=== PATIENT | female | born 1950 | race Caucasian/White ===

== ENCOUNTER → 2017-03-25 | Outpatient (CLI) | payer BC ==
[~2017-03-25] MED LIST: HYDR-3720 PO; LEVO125T71 PO; OXYC-284 PO; PRED20TA PO; VALA100057 PO
--- NOTE | 2017-03-25 13:32 | RADRPT ---
PROCEDURE: US soft tissue CLINICAL INDICATION: Right knee pain, Villavicencio's cyst TECHNIQUE: Multiple real-time images were acquired of the patient's right knee utilizing a high re solution transducer and Doppler imaging. COMPARISON: None FINDINGS: No Villavicencio's cyst is identified. The soft tissues are unremarkable. The right popliteal artery and ve in are patent without evidence of filling defects. No free fluid is identified. RPTAT: AA IMPRESSION: Unremarkable soft tissue ultrasound of the right knee without evidence of a Villavicencio's cyst or other ab normality. Physician Shagufta Date Time Electronically viewed and signed by Physician Shagufta on 03/25/2017 13:32 RA/
--- NOTE | 2017-03-25 13:33 | RADRPT ---
PROCEDURE: Right knee x-ray CLINICAL INDICATION: RT KNEE PAIN TECHNIQUE: AP, lateral, and oblique views of the knee were obtained. COMPARISON: None FINDINGS: No acute fracture or dislocation is seen. There is normal mineralization. There is moderate narrowing of the patellofemoral compartment as well as mild narrowing of the media l and lateral compartments. Small osteophytes of the medial and lateral compartments are also noted . There is no joint effusion. There is no significant soft tissue swelling. IMPRESSION: Mild to moderate degenerative changes of the right knee joint. RPTAT: EE Physician Shagufta Date Time Electronically viewed and signed by Physician Shagufta on 03/25/2017 13:33 /
== END | disposition home or self-care (01) ==
LOC: RAD 10:04
PROVIDERS: ATTEND Nurse Practitioner
DX: M25.561 Pain in right knee (principal)
CPT/HCPCS: 73562

== ENCOUNTER → 2017-03-26 | Outpatient (CLI) | payer BC ==
[2017-03-26 07:54] LABS: ADD SCAN DIFF NO
[2017-03-26 08:18] LABS: BASOPHILS % 0.7 % (0.0-2.0); EOSINOPHILS # 0.2 10^3/ul (0.0-0.5); HEMATOCRIT 41.3 % (37.0-47.0); HEMOGLOBIN 13.6 g/dl (12.0-16.0); LYMPHOCYTES # 2.1 10^3/ul (0.8-2.9); LYMPHOCYTES % 45.6 % (15.0-51.0); MEAN CORPUSCULAR HEMOGLOBIN 32.5 pg (29.0-33.0); MEAN CORPUSCULAR HGB CONC 32.9 g/dl (32.0-37.0); MEAN CORPUSCULAR VOLUME 98.6 fl (82.0-101.0); MEAN PLATELET VOLUME 10.2 fl (7.4-10.4); MONOCYTE # 0.4 10^3/ul (0.3-0.9); NEUTROPHIL # 1.9 10^3/ul (1.6-7.5); NEUTROPHILS % 41.5 % (39.0-77.0); PLATELET COUNT 225 10^3/UL (140-415); RED BLOOD COUNT 4.19 10^6/ul (4.20-5.40); RED CELL DISTRIBUTION WIDTH 12.4 % (11.5-14.5); WHITE BLOOD COUNT 4.5 10^3/ul (4.8-10.8)
[2017-03-26 08:37] LABS: ALANINE AMINOTRANSFERASE 36 IU/L (13-69); ALBUMIN 4.9 g/dl (3.3-4.9); ALBUMIN/GLOBULIN RATIO 1.53; ALKALINE PHOSPHATASE 70 IU/L (42-121); ANION GAP 14 (8-16); ASPARTATE AMINO TRANSFERASE 38 IU/L (15-46); BILIRUBIN,INDIRECT 0.5 mg/dl (0-1.1); BILIRUBIN,TOTAL 0.5 mg/dl (0.2-1.3); BLOOD UREA NITROGEN 16 mg/dl (7-20); CALCIUM 9.2 mg/dl (8.4-10.2); CARBON DIOXIDE 26 mmol/L (21-31); CHLORIDE 106 mmol/L (97-110); CHOL/HDL RATIO 2.3 RATIO; CHOLESTEROL 193 mg/dl (100-200); CREATININE 0.64 mg/dl (0.44-1.00); GLUCOSE 76 mg/dl (70-220); HDL CHOLESTEROL 83 mg/dl (35-98); SODIUM 142 mmol/L (135-144); TOTAL PROTEIN 8.1 g/dl (6.1-8.1); TRIGLYCERIDES 90 mg/dl (0-149)
[2017-03-26 09:13] LABS: FERRITIN 14.5 ng/ml (11.1-264.0)
[2017-03-26 09:47] LABS: FOLATE > 20.0 ng/ml (2.8-20.0)
[2017-03-26 10:04] LABS: IRON 135 ug/dl (35-150)
[2017-03-26 10:13] LABS: TOTAL IRON BINDING CAPACITY 392 ug/dl (241-421)
== END | disposition home or self-care (01) ==
LOC: LAB 07:04
PROVIDERS: ATTEND Nurse Practitioner
DX: E03.9 Hypothyroidism, unspecified (principal); Z98.84 Bariatric surgery status
CPT/HCPCS: 80053; 80061; 82607; 82652; 82728; 82746; 83540; 84436; 84439; 84443; 85025; 86803

== ENCOUNTER 2017-06-24 10:46 | Emergency (ER) | payer BC ==
[~2017-06-24] VITALS: Ht 165.1 cm; Wt 60.0 kg
[2017-06-24 10:50] VITALS: Ht 165.1 cm; Wt 60.0 kg
[2017-06-24] MEDS ORDERED: IBUPROFEN 800 MG TAB PO ONE (11:00)
[2017-06-24] MEDS ORDERED: IBUP-1542 PO (11:32)
--- NOTE | 2017-06-24 11:43 | RADRPT ---
PROCEDURE: Right hand series CLINICAL INDICATION: Right thumb pain TECHNIQUE: PA and oblique and lateral images of the right hand were obtained portably COMPARISON: None FINDINGS: There is no evidence of acute fractures or dislocations. The bony mineralization is normal. No foc al bony blastic or lytic lesions or erosions. The soft tissues are unremarkable. IMPRESSION: No evidence of acute fractures dislocations or erosions. RPTAT:AAJJ Physician Sulema Date Time Electronically viewed and signed by Gretta Sebastian Physician on 06/24/2017 11:42 BM/
--- NOTE | 2017-06-24 13:55 | ERD ---
ER Documentation Chief Complaint Date/Time DATE: 06/24/17 TIME: 13:53 Chief Complaint rt thumb pain HPI Patient is a 67-year-old female with thyroid disease who presents with right thumb pain. She said the pain started 2 months ago. The pain is worsening and was worse today so she was told by the nursing supervisor harvesting to go to the emergency department. She says that she has pain with moving the thumb over the thenar eminence. She tried ibuprofen and Tylenol. She is left-handed. She says that she does type with the computer on her right hand a lot. She denies trauma. She does not currently have a primary doctor. ROS All systems reviewed and are negative except as per history of present illness. Medications Home Meds Active Scripts Ibuprofen* (Motrin*) 600 Mg Tab, 600 MG PO Q6H Y for PAIN AND OR ELEVATED TEMP, #30 TAB Prov:KARLEE ERICKSON MD 06/24/17 Oxycodone Hcl-Acetaminophen* (Percocet*) 10-325 Mg Tablet, 1 TAB PO Q4H Y for PAIN, #20 TAB Prov:CRISTOPHER LANDAVERDE DO 02/11/16 Prednisone* (Prednisone*) 20 Mg Tab, 20 MG PO DAILY for 10 Days, TAB 3 by mouth daily 5 days then 2 by mouth daily 3 days then 1 by mouth daily 2 days Prov:KITA GODWIN DO 02/08/16 Valacyclovir Hcl* (Valtrex*) 1,000 Mg Tablet, 1000 MG PO TID for 7 Days, TAB Prov:KITA GODWIN DO 02/08/16 Hydrocodone Bit-Acetaminophen* ([place]*) 7.5-325 Tablet, 2 TAB PO Q4H Y for PAIN , #30 TAB Prov:KITA GODWIN DO 02/08/16 Reported Medications Levothyroxine Sodium* (Levoxyl*) 125 Mcg Tablet, 125 MCG PO BEFORE BREAKFAST, # 30 TAB 02/08/16 Allergies Allergies: Coded Allergies: No Known Drug Allergies (Verified Allergy, Unknown, 02/08/16) PMhx/Soc History of Surgery: Yes (BOWEL RESECTION MARCH 2012; ADHESIONS IN AUG 2012) Anesthesia Reaction: No Hx Neurological Disorder: No Hx Respiratory Disorders: No Hx Cardiac Disorders: No Hx Psychiatric Problems: No Hx Alcohol Use: No Hx Substance Use: No Hx Tobacco Use: No Smoking Status: Never smoker FmHx Family History: No diabetes Physical Exam Vitals Vital Signs Date Time Temp Pulse Resp B/P Pulse Ox O2 Delivery O2 Flow Rate FiO2 06/24/17 10:50 97.3 78 19 130/75 99 Physical Exam Const: No acute distress Head: Atraumatic Eyes: Normal Conjunctiva ENT: Normal External Ears, Nose and Mouth. Neck: Full range of motion..~ No meningismus. Resp: Clear to auscultation bilaterally Cardio: Regular rate and rhythm, no murmurs Abd: Soft, non tender, non distended. Normal bowel sounds Skin: No petechiae or rashes Back: No midline or flank tenderness Ext: No cyanosis, or edema, Normal capillary refill in all 5 fingers of the right hand, 2+ radial pulses bilaterally Neur: Awake and alert, Full range of motion of the right upper extremity, 3 nerve roots of the right upper extremity are intact Psych: Normal Mood and Affect Results 24 hrs Current Medications Medications (Trade) Dose Ordered Sig/Byron Route PRN Reason Start Time Stop Time Status Last Admin Dose Admin Ibuprofen (Motrin) 800 mg ONCE ONCE PO 06/24/17 11:00 06/24/17 11:01 DC 06/24/17 11:17 Procedures/MDM X-ray Hand 3V interpreted by me: Scaphoid: Normal Bones: No fracture Joints: No dislocation Foreign body: None Patient is a 67-year-old female presents with right thumb pain. There is no sign of fracture or dislocation. The patient likely has musculoskeletal pain as the pain is over the thenar eminence of her right hand. The patient will be discharged and can use ibuprofen as needed for pain and inflammation. The patient can return sooner for any worsening symptoms. The patient understands the plan and is okay for discharge at this time. Departure Diagnosis: Primary Impression: Pain of finger Laterality: right Qualified Code: M79.644 - Pain of finger of right hand Condition: Fair Patient Instructions: Sprain Finger Referrals: A Primary doctor Additional Instructions: Call your primary care doctor TOMORROW for an appointment during the next 1 WEEK.Tell the medical unit secretary that you were referred from this facility.See the doctor sooner or return here if your condition worsens before your appointment time. KARLEE ERICKSON MD Jun 24, 2017 13:55
== END 2017-06-24 12:07 | disposition home or self-care (01) ==
LOC: E/R 10:46
DX: M79.644 Pain in right finger(s) (principal)

== ENCOUNTER 2017-07-08 06:53 | Emergency (ER) | payer BC ==
[~2017-07-08] VITALS: Ht 162.6 cm; Wt 80.5 kg
[~2017-07-08 06:53] MED LIST changes: +IBUP-1542 PO
[2017-07-08 06:55] VITALS: Ht 162.6 cm; Wt 80.5 kg
[2017-07-08] MEDS ORDERED: LIDOCAINE 2% (MDV) 20 ML INJ INJ STA (07:28)
[2017-07-08] MEDS ORDERED: TRIMETHOPRIM/SULFAMETHOX (DS) TAB PO STA (07:36)
[2017-07-08] MEDS ORDERED: CEPHALEXIN 500 MG CAP PO STA (07:36)
[2017-07-08] MEDS ORDERED: SULF1TAB31 PO (07:38)
[2017-07-08] MEDS ORDERED: CEPH-443 PO (07:38)
[2017-07-08] MEDS ORDERED: ACET325T33 PO (07:40)
--- NOTE | 2017-07-08 08:21 | ERD ---
ER Documentation Chief Complaint Date/Time DATE: 07/08/17 TIME: 08:07 Chief Complaint left big toe ingrown toenail HPI 67-year-old female presents with an left ingrown toenail for the past week. Patient states that the pain has worsened today. She rates the pain 10 out of 10. He denies any fevers. Denies taking any medications for this ROS All systems reviewed and are negative except as per history of present illness. Medications Home Meds Active Scripts Acetaminophen* (Tylenol*) 325 Mg Tablet, 2 TAB PO Q4 Y for PAIN AND OR ELEVATED TEMP, #30 TAB Prov:SAMANTHA DODSON PA-C 07/08/17 Sulfamethoxazole/Trimethoprim* (Bactrim Ds* Tablet) 1 Each Tablet, 1 TAB PO BID , #14 TAB Prov:SAMANTHA DODSON PA-C 07/08/17 Cephalexin* (Keflex*) 500 Mg Capsule, 500 MG PO QID for 10 Days, CAP Prov:SAMANTHA DODSON PA-C 07/08/17 Ibuprofen* (Motrin*) 600 Mg Tab, 600 MG PO Q6H Y for PAIN AND OR ELEVATED TEMP, #30 TAB Prov:KARLEE ERICKSON MD 06/24/17 Oxycodone Hcl-Acetaminophen* (Percocet*) 10-325 Mg Tablet, 1 TAB PO Q4H Y for PAIN, #20 TAB Prov:CRISTOPHER LANDAVERDE DO 02/11/16 Prednisone* (Prednisone*) 20 Mg Tab, 20 MG PO DAILY for 10 Days, TAB 3 by mouth daily 5 days then 2 by mouth daily 3 days then 1 by mouth daily 2 days Prov:KITA GODWIN DO 02/08/16 Valacyclovir Hcl* (Valtrex*) 1,000 Mg Tablet, 1000 MG PO TID for 7 Days, TAB Prov:KITA GODWIN DO 02/08/16 Hydrocodone Bit-Acetaminophen* ([place]*) 7.5-325 Tablet, 2 TAB PO Q4H Y for PAIN , #30 TAB Prov:KITA GODWIN DO 02/08/16 Reported Medications Levothyroxine Sodium* (Levoxyl*) 125 Mcg Tablet, 125 MCG PO BEFORE BREAKFAST, # 30 TAB 02/08/16 Allergies Allergies: Coded Allergies: No Known Drug Allergies (Verified Allergy, Unknown, 02/08/16) PMhx/Soc History of Surgery: Yes (BOWEL RESECTION MARCH 2012; ADHESIONS IN AUG 2012) Anesthesia Reaction: No Hx Neurological Disorder: No Hx Respiratory Disorders: No Hx Cardiac Disorders: No Hx Psychiatric Problems: No Hx Alcohol Use: No Hx Substance Use: No Hx Tobacco Use: No Smoking Status: Never smoker Physical Exam Vitals Vital Signs Date Time Temp Pulse Resp B/P Pulse Ox O2 Delivery O2 Flow Rate FiO2 07/08/17 06:55 97.3 74 20 155/81 100 Physical Exam Const: WD/WN Head: Atraumatic Eyes: Normal Conjunctiva ENT: Normal External Ears, Nose and Mouth. Neck: Full range of motion..~ No meningismus. Resp: Clear to auscultation bilaterally Cardio: Regular rate and rhythm, no murmurs Abd: Soft, non tender, non distended. Normal bowel sounds Skin: left ingrown toe nail with surrounding mild erythema Back: No midline or flank tenderness Ext: No cyanosis, or edema Neur: Awake and alert Psych: Normal Mood and Affect Results 24 hrs Current Medications Medications (Trade) Dose Ordered Sig/Byron Route PRN Reason Start Time Stop Time Status Last Admin Dose Admin Lidocaine (Xylocaine 2% (Mdv) 20 ml) 20 ml ONCE STAT INJ 07/08/17 07:28 07/08/17 07:37 DC Cephalexin (Keflex) 500 mg ONCE STAT PO 07/08/17 07:36 07/08/17 07:38 DC 07/08/17 07:49 Trimethoprim/ Sulfamethoxazole (Bactrim (Ds)) 1 tab ONCE STAT PO 07/08/17 07:36 07/08/17 07:38 DC 07/08/17 07:48 Procedures/MDM This is a 67-year-old female presents with left ingrown toenail with paronychia with no drainable purulent pocket. Patient is afebrile, she appears well and stable to be discharged to follow-up with podiatry for further evaluation management. Patient was given a prescription for Keflex and Bactrim , her first dose was given in the ED. I discussed with her to do warm soaks 3 times a day while gently lifting the nail bed. Discussed to return in 2 days for wound check. Discussed to follow-up with podiatry. She understands and agrees with this plan Departure Diagnosis: Primary Impression: Ingrowing nail, left great toe Additional Impression: Paronychia Condition: Stable Patient Instructions: Understanding Ingrown Toenails, Ingrown Toenail, Infected (Abx Only), Paronychia Referrals: ESTRELLA MURDOCK KAZUTO H AYVAZIAN, HERMOZ B DPSTEPHANIE BAUTISTA DPM, RONALD J. DPM BLACK, STEVEN Additional Instructions: Please follow-up with podiatry for recurrent ingrown toe nails Take all medicines as directed. Return to this facility if you are not improving as expected. SAMANTHA DODSON PA-C Jul 08, 2017 08:18
== END 2017-07-08 08:09 | disposition home or self-care (01) ==
LOC: FTE 06:53
DX: L60.0 Ingrowing nail (principal); L03.032 Cellulitis of left toe
CPT/HCPCS: 99284

== ENCOUNTER 2018-01-14 07:01 | Emergency (ER) | END 2018-01-14 10:35 | disposition home or self-care (01) ==

== ENCOUNTER 2018-01-25 00:22 | Emergency (ER) | END 2018-01-25 05:20 | disposition home or self-care (01) ==

== ENCOUNTER → 2018-01-30 | Outpatient (CLI) | END | disposition home or self-care (01) ==

== ENCOUNTER → 2018-07-18 | Outpatient (CLI) | END | disposition home or self-care (01) ==

== ENCOUNTER 2018-08-03 18:21 | Emergency (ER) | END 2018-08-03 19:39 | disposition home or self-care (01) ==

== ENCOUNTER 2019-04-12 19:41 | Inpatient (IN) | payer BC ==
[~2019-04-12] VITALS: Ht 160 cm; Wt 69.4 kg
[~2019-04-12 19:41] MED LIST changes: +ALBU8.5H8 INH; -HYDR-3720 PO; -IBUP-1542 PO; -OXYC-284 PO; -VALA100057 PO
--- NOTE | 2019-04-12 20:05 | ERD ---
ER Documentation Chief Complaint Chief Complaint precordial CP x 7 hrs ago, took ASA, w/ L arm pain, too HPI This is a 68-year-old woman complaining of left-sided chest pain beginning about 7 hours prior to arrival, the pain occurred at rest and radiated to the left lateral shoulder and down the left arm. Pain was pressure-like. She did use aspirin at home prior to arrival. Patient denies fevers or chills, no cough, no diaphoresis, no dizziness or loss of consciousness, no complaints of abdominal pain. ROS All systems reviewed and are negative except as per history of present illness. Medications Home Meds Active Scripts Prednisone* (Prednisone*) 20 Mg Tab, 40 MG PO DAILY for 4 Days, TAB Prov:KITA GODWIN DO 08/03/18 Albuterol Sulfate* (Proair HFA*) 8.5 Gm Hfa.aer.ad, 2 PUFF INH Q4, #1 INHALER Prov:KITA GODWIN DO 08/03/18 Reported Medications Levothyroxine Sodium* (Levoxyl*) 125 Mcg Tablet, 125 MCG PO BEFORE BREAKFAST, #30 TAB 02/08/16 Allergies Allergies: Coded Allergies: No Known Drug Allergies (Verified Allergy, Unknown, 01/14/18) PMhx/Soc Hypothyroidism, GERD, history of gastric ulcer, cholecystectomy, hysterectomy, gastric bypass, bowel resection, lysis of adhesions History of Surgery: Yes (BOWEL RESECTION MARCH 2012; ADHESIONS IN AUG 2012) Anesthesia Reaction: No Hx Neurological Disorder: No Hx Respiratory Disorders: No Hx Cardiac Disorders: No Hx Psychiatric Problems: No Hx Miscellaneous Medical Probl: Yes (r. colectomy, gerd, gastric ulcers, gastric ulcer, T9 FX, HYPOTHYROID) Hx Alcohol Use: No Hx Substance Use: No Hx Tobacco Use: No FmHx Family History: No diabetes Physical Exam Vitals Vital Signs Date Temp Pulse Resp B/P (MAP) Pulse Ox O2 O2 Flow FiO2 Time Delivery Rate 04/12/19 98.7 72 18 136/64 100 19:51 (88) Physical Exam Const: No acute distress, afebrile Resp: Clear to auscultation bilaterally Cardio: Regular rate and rhythm, no murmurs Abd: Soft, non tender, non distended. Normal bowel sounds Skin: No petechiae or rashes Back: No midline or flank tenderness Ext: No cyanosis, or edema Neur: Awake and alert x3, no focal deficits or facial asymmetry, pupils equal round reactive to light Psych: Normal Mood and Affect Result Diagram: 04/12/19201404/12/192014 Results 24 hrs Laboratory Tests Test 04/12/19 20:15 White Blood Count 6.2 10^3/ul Red Blood Count 3.96 10^6/ul Hemoglobin 12.2 g/dl Hematocrit 38.0 % Mean Corpuscular Volume 96.0 fl Mean Corpuscular Hemoglobin 30.8 pg Mean Corpuscular Hemoglobin Concent 32.1 g/dl Red Cell Distribution Width 13.3 % Platelet Count 235 10^3/UL Mean Platelet Volume 9.8 fl Immature Granulocytes % 0.300 % Neutrophils % 59.0 % Lymphocytes % 28.9 % Monocytes % 8.6 % Eosinophils % 1.9 % Basophils % 1.3 % Nucleated Red Blood Cells % 0.0 /100WBC Immature Granulocytes # 0.020 10^3/ul Neutrophils # 3.6 10^3/ul Lymphocytes # 1.8 10^3/ul Monocytes # 0.5 10^3/ul Eosinophils # 0.1 10^3/ul Basophils # 0.1 10^3/ul Nucleated Red Blood Cells # 0.0 10^3/ul Urine Color COLORLESS Urine Clarity CLEAR Urine pH 6.0 Urine Specific [place] 1.004 Urine Ketones NEGATIVE mg/dL Urine Nitrite NEGATIVE mg/dL Urine Bilirubin NEGATIVE mg/dL Urine Urobilinogen NEGATIVE mg/dL Urine Leukocyte Esterase TRACE Alvaro/ul Urine Microscopic RBC 1 /HPF Urine Microscopic WBC 3 /HPF Urine Hemoglobin NEGATIVE mg/dL Urine Glucose NEGATIVE mg/dL Urine Total Protein NEGATIVE mg/dl Sodium Level 145 mmol/L Potassium Level 4.6 mmol/L Chloride Level 106 mmol/L Carbon Dioxide Level 29 mmol/L Anion Gap 10 Blood Urea Nitrogen 16 mg/dl Creatinine 0.75 mg/dl Est Glomerular Filtrat Rate mL/min > 60 mL/min Glucose Level 103 mg/dl Calcium Level 9.9 mg/dl Total Bilirubin 0.4 mg/dl Direct Bilirubin 0.00 mg/dl Indirect Bilirubin 0.4 mg/dl Aspartate Amino Transf (AST/SGOT) 31 IU/L Alanine Aminotransferase (ALT/SGPT) 20 IU/L Alkaline Phosphatase 61 IU/L Troponin I < 0.012 ng/ml Total Protein 7.0 g/dl Albumin 4.1 g/dl Globulin 2.90 g/dl Albumin/Globulin Ratio 1.41 Lipase 378 U/L Current Medications Medications Dose Sig/Byron Start Time Status Last (Trade) Ordered Route PRN Stop Time Admin Dose Reason Admin Sodium 500 ml @ Q1H STAT 04/12/19 DC 04/12/19 Chloride 500 mls/hr IV 20:08 20:31 04/12/19 21:07 40 ml ONCE STAT 04/12/19 DC 04/12/19 Miscellaneous PO 20:08 20:30 Medication 04/12/19 20:09 (Gi Cocktail (2)) [place]/ 2 tab ONCE STAT 04/12/19 DC 04/12/19 Phenobarbital PO 20:08 20:30 () 04/12/19 20:09 Ketorolac 15 mg ONCE STAT 04/12/19 DC 04/12/19 Tromethamine IV 20:08 20:30 (Toradol) 04/12/19 20:09 Procedures/MDM IV line was established patient was placed on hook loader rhythm strip revealed a sinus rhythm at about 70 bpm with upright P and T waves. Patient was afebrile EKG performed, read by me: 74 bpm, normal sinus rhythm, normal axis, no acute ST segment changes, narrow QRS complex, with good R-wave progression in precordial leads. One AP view of the chest performed, read by me reveals no acute infiltrates, normal mediastinum, sharp costophrenic and cardiac borders, no air under the diaphragm. Otherwise unremarkable chest x-ray. Patient already used aspirin prior to arrival. I administered 500 cc normal saline IV, Toradol 15 mg IV, and a GI cocktail p.o. CBC and electrolytes are normal, liver function tests were normal, troponin was negative patient will be admitted to telemetry setting for continued medical management cardiology consultation. Departure Diagnosis: Primary Impression: Chest pain Chest pain type: unspecified Qualified Codes: R07.9 - Chest pain, unspecified Condition: RONNIE Montiel MD Apr 12, 2019 20:05
[2019-04-12] MEDS ORDERED: BELLADONNA/PHENOBARBITAL TAB PO STA (20:08)
[2019-04-12] MEDS ORDERED: SOD CHLORIDE 0.9% 500 ML IV STA (20:08)
[2019-04-12] MEDS ORDERED: KETOROLAC 15 MG INJ IV STA (20:08)
[2019-04-12] MEDS ORDERED: LIDOCAINE/MYLANTA 40 ML BTL PO STA (20:08)
[2019-04-12 21:47] VITALS: Ht 160 cm; Wt 69.4 kg
[2019-04-12 21:50] VITALS: PULSE 59
[2019-04-12 21:52] VITALS: BP 132/68; PULSE 64; RESP 22
[2019-04-12] MEDS ORDERED: ZOLPIDEM 5 MG TAB PO PRN (22:30)
[2019-04-12] MEDS ORDERED: ACETAMINOPHEN 500 MG TAB PO PRN (22:30)
[2019-04-12] MEDS ORDERED: ASPIRIN 81 MG TAB PO ONE (22:30)
[2019-04-12] MEDS ORDERED: NITROGLYCERIN (SL) 0.4 MG TAB SL PRN ×2 (22:30→23:30)
[2019-04-12] MEDS ORDERED: morphine 4 MG/ML VIAL IV PRN (22:30)
[2019-04-12] MEDS ORDERED: ENOXAPARIN 40 MG/0.4 ML SYG SC ONE (22:30)
[2019-04-12 23:11] VITALS: BP 122/73; PULSE 65; RESP 16
[2019-04-13] VITALS (7 sets, daily range): BP systolic 114; BP diastolic 65–67; PULSE 65–80; RESP 16–18
[2019-04-13] MEDS ORDERED: ASPIRIN 81 MG TAB PO SCH (09:00)
--- NOTE | 2019-04-13 09:24 | HP ---
DATE OF ADMISSION: 04/12/2019 CHIEF COMPLAINT AND HISTORY OF PRESENT ILLNESS: The patient is a 68-year-old lady who is well known to me from previous followup, presenting with left-sided chest pain lasting for about 2 hours, starte d after she had her lunch and the patient was evaluated in the emergency room and was admitted. The patient states that the pain was pressure-like and it is not constant, some shortness of breath, but no palpitations, no definite radiation. The patient has had no prior history of coronary artery dise ase, did have a treadmill about 7 years ago which was negative prior to gastric bypass. REVIEW OF SYSTEMS: HEAD: No history of headaches, focal weakness, or numbness. EYES: No blurry vision or glaucoma. She has had prior history of shingles right frontal scalp with post-herpetic neuralgia. ENT: No sinusitis, tonsillitis, or hoarseness. NECK: No history of neck pain. History of hypothyroidism. CHEST: No cough, hay fever. The patient has had secondhand smoking. CARDIOVASCULAR: As above. No history of high cholesterol. GASTROINTESTINAL: History of gastric bypass in 2006, bowel resection with resection of necrotic marcell l by Dr. De Luna. No symptoms suggestive of dumping syndrome. The patient has also had a cholecyste ctomy. GENITOURINARY: No dysuria, hematuria or kidney stones. PAST SURGICAL HISTORY: The patient has had a hysterectomy and oophorectomy in 2007. Mammogram negat yamil. SLEEP: She does snore. No history of sleep apnea. FAMILY HISTORY: Father of lung cancer at 56. Mother at age 76 for breast cancer. One sis ter at 54-year-old breast cancer. ALLERGIES: NO KNOWN ALLERGIES. MEDICATION: 1. Levothyroxine 125 mcg every day. PHYSICAL EXAMINATION: GENERAL: The patient is an average-built female who is very pleasant, presently in no acute distress . She did have mild chest pain after breakfast, which resolved. VITAL SIGNS: Temperature 98.7, blood pressure 114/67, O2 sat is 97% on room air. HEENT: Head normocephalic. No pallor, cyanosis, or icterus. Tongue is moist. NECK: Supple. No thyromegaly, bruits or lymphadenopathy. LUNGS: Clinically clear. HEART: S1, S2 heard, no definite gallops. ABDOMEN: Soft, nontender, no hepatosplenomegaly. EXTREMITIES: No edema. Dorsalis pedis pulsations 2+ bilaterally. Homans sign is negative. Examina tion of the sacral area. The patient has possible pilonidal cyst, the patient has had occasional dis charge from that. IMPRESSION: 1. Atypical chest pain. History suggestive of GI in origin, possible gastroesophageal reflux diseas e, peptic ulcer disease. 2. Hypothyroidism. 3. Status post gastric bypass. Possible pilonidal cyst. PLAN: We will request Dr. Tucker from cardiology standpoint. Consider stress test. We will dougie nue aspirin and Lovenox for now. Start the patient on proton pump inhibitors. We will also request Dr. De Luna for evaluation of a cyst. Dictated By: SHANKAR ANSARI MD SR/NTS Conf#: [id number] DID#: [id number] CC: SHANKAR ANSARI MD;*EndCC*
[2019-04-13] MEDS ORDERED: LEVOTHYROXINE 125 MCG TAB PO SCH (11:00)
[2019-04-13] MEDS ORDERED: PANTOPRAZOLE (EC) 40 MG TAB PO SCH (11:00)
--- NOTE | 2019-04-13 12:57 | RADRPT ---
Echocardiogram Report Patient Name: JULIA DELGADILLOPatient ID: [id number] : 1950 (68y 11m)Study Date: 04/13/2019 9:58:52 AM Gender: FAccession #: [id number] Tech: Rebel Tang [facility] Location: 2- Ref.Physician: AUBREY NICOLAS Height(Cm): BSA: Weight(Kg): Quality: AdequateOrder Physician: AUBREY NICOLAS Account #: Procedures: Echocardiographic Report: Transthoracic echocardiogram with complete 2D, M-Mode, and doppler examination. Indications: Chest Pain. Measurements: 2D/M Mode Doppler Measurement Value Normal Range Measurement Value Normal Range LVIDd 2D 4.1 [ 3.8 - 5.2 ] cm AV Peak [place] 1.5 [ 100.0 - 170.0 ] cm/sec LVIDs 2D 2.7 [ 2.2 - 3.5 ] cm AV Peak PG 8.0 [ 2.0 - 9.0 ] mmHg LVPWd 2D 0.9 [ 0.6 - 0.9 ] cm LVOT Peak [place] 1.0 [ 70.0 - 110.0 ] cm/sec IVSd 2D 1.3 [ 0.6 - 0.9 ] cm LVOT Peak PG 4.0 [ 2.0 - 6.0 ] mmHg AoR Diam 2D 2.3 [ 2.3 - 3.1 ] cm MV E Peak [place] 0.8 [ 60.0 - 130.0 ] cm/sec LA Dimen 2D 3.4 [ 2.7 - 3.8 ] cm MV A Peak [place] 0.7 [ 100.0 - 120.0 ] cm/sec MV E/A 1.2 [ 0.8 - 1.5 ] ratio MV Decel Time 218 [ 104 - 258 ] msec Lat E` [place] 0.1 [ 10.0 - 15.0 ] cm/sec Lateral E/E` 8.2 [ 1.0 - 2.0 ] ratio Med E` [place] 0.1 cm/sec MV E/A 1.2 [ 0.8 - 1.5 ] ratio TR Peak [place] 2.4 [ 100.0 - 280.0 ] cm/sec TR Peak PG 24.0 mmHg RVSP 27.0 [ 10.0 - 36.0 ] mmHg Findings: Left Ventricle: Normal left ventricular systolic function. Normal left ventricular cavity size. Ejection fraction is visually estimated at 65 %. Tissue Doppler/Mitral Doppler indices are within normal limits. Right Ventricle: Normal right ventricular size. Normal right ventricular systolic function. Left Atrium: The left atrium is normal in size. Right Atrium: The right atrium is normal in size. Mitral Valve: Normal appearance of the mitral valve. Trace mitral regurgitation. Aortic Valve: No hemodynamically significant aortic stenosis by doppler. Aortic sclerosis without significant stenosis. Trace aortic valve regurgitation. Tricuspid Valve: Normal appearance of the tricuspid valve. Normal right ventricular systolic pressure. The estimated Peak RVSP is 27 mmHg. There is mild tricuspid regurgitation. Pulmonic Valve: Normal pulmonic valve appearance. Pericardium: Normal pericardium with no significant pericardial effusion. Aorta: Normal aortic root. IVC: Normal size and normal respiratory collapse consistent with normal right atrial pressure. Conclusions: Normal left ventricular systolic function. Normal left ventricular cavity size. Ejection fraction is visually estimated at 65 %. Tissue Doppler/Mitral Doppler indices are within normal limits. Normal right ventricular size. Normal right ventricular systolic function. No hemodynamically significant aortic stenosis by doppler. Aortic sclerosis without significant stenosis. Trace aortic valve regurgitation. Normal appearance of the tricuspid valve. Normal right ventricular systolic pressure. The estimated Peak RVSP is 27 mmHg. There is mild tricuspid regurgitation. Normal pericardium with no significant pericardial effusion. Normal aortic root. Normal size and normal respiratory collapse consistent with normal right atrial pressure. No Vegetation, masses, or thrombi seen. Electronically Signed By: Aubrey Nicolas 2019-04-13 12:57:22 PDT
--- NOTE | 2019-04-13 13:03 | CONS ---
Assessment/Plan Assessment/Plan Hospital Course (Demo Recall) Atypical cp- sounds more gi related. given serial trop neg, and ekg wnl without acute abnl + echo with normal lv fxn, recommend trial of ppi therapy. can consider outpt stress for risk stratification. d/w pt who is in agreement. d/w dr ansari Consultation Date/Type/Reason Admit Date/Time Apr 12, 2019 at 20:50 Date of Consultation: Apr 13, 2019 Type of Consult Cardiology Reason for Consultation Chest pain Requesting Provider: SHANKAR ANSARI MD Date/Time of Note DATE: 04/13/19 TIME: 12:54 Hx of Present Illness 68 y.o. woman without cardiac hx - reports one day of midepigastric discomfort, after eating lasted a few hours no radiation, associated symptoms, no previous episodes - admitted to [facility], ekg/serial trop negative - states had recurrence after eating breakfast, states felt like heart burn. - otherwise active. exercises without symptoms, cp/sob - no pnd, orthopnea, edema - no palpitations, syncope - states previous stress a few years ago prior to gastric bypass was negative. Constitutional: no complaints Eyes: no complaints ENT: no complaints Respiratory: no complaints Cardiovascular: no complaints Gastrointestinal: pain Genitourinary: no complaints Musculoskeletal: no complaints Skin: no complaints Neurologic: no complaints Endocrine: no complaints Lymphatic: no complaints Psychological: no complaints, nl mood/affect Immunologic: no complaints Past Medical History gastic bypass surgery hypothyroid Home Meds Active Scripts Prednisone* (Prednisone*) 20 Mg Tab, 40 MG PO DAILY for 4 Days, TAB Prov:KITA GODWIN DO 08/03/18 Albuterol Sulfate* (Proair HFA*) 8.5 Gm Hfa.aer.ad, 2 PUFF INH Q4, #1 INHALER Prov:KITA GODWIN DO 08/03/18 Reported Medications Levothyroxine Sodium* (Levoxyl*) 125 Mcg Tablet, 125 MCG PO BEFORE BREAKFAST, #30 TAB 02/08/16 Medications Current Medications Morphine Sulfate (morphine) 4 mg Q4 PRN IV SEVERE PAIN; Start 04/12/19 at 22:30 Zolpidem Tartrate (Ambien) 5 mg HS PRN PO INSOMNIA; Start 04/12/19 at 22:30 Acetaminophen (Tylenol Tab) 500 mg Q4 PRN PO MILD PAIN LEVEL 1-3 Last administered on 04/13/19at 10:30; Admin Dose 500 MG; Start 04/12/19 at 22:30 Nitroglycerin (Nitroglycerin (Sl Tab) 0.4 Mg) 1 tab [id number] PRN SL CHEST PAIN; Start 04/12/19 at 23:30 Aspirin (Aspirin) 81 mg DAILY PO Last administered on 04/13/19at 10:30; Admin Dose 81 MG; Start 04/13/19 at 09:00 Levothyroxine Sodium (Synthroid) 125 mcg DAILY@06 PO Last administered on 04/13/19at 11:03; Admin Dose 125 MCG; Start 04/13/19 at 11:00 Pantoprazole (Protonix Tab) 40 mg DAILY@06 PO Last administered on 04/13/19at 11:03; Admin Dose 40 MG; Start 04/13/19 at 11:00 Allergies: Coded Allergies: No Known Drug Allergies (Verified Allergy, Unknown, 01/14/18) Past Surgical History The patient has had a hysterectomy and oophorectomy in 2007, gastric bypass Family History Significant Family History: other (no cad reported) Social History Alcohol Use: none Smoking Status: Never smoker Drug Use: none Exam/Review of Systems Exam Vitals Vital Signs Date Temp Pulse Resp B/P (MAP) Pulse Ox O2 O2 Flow FiO2 Time Delivery Rate 04/13/19 80 08:00 04/13/19 98.7 18 114/67 97 Room Air 07:50 (83) Intake and Output 04/12/19 04/12/19 04/13/19 1515:00 23:00 07:00 IntakeIntake Total 220 ml 120 ml BalanceBalance 220 ml 120 ml Constitutional: alert, oriented, well developed Psych: no complaints Head: normocephalic, atraumatic Eyes: EOMI, nl lids ENMT: nl external ears & nose, nl lips & teeth, nl nasal mucosa & septum Neck: supple, non-tender; No jvd Respiratory: clear to auscultation, normal air movement Cardiovascular: regular rate and rhythm, nl pulses; No diastolic murmur, No edema, No irregular rhythm, No systolic murmur, No S3, No S4 Gastrointestinal: soft, non-tender Musculoskeletal: nl extremities to inspection, nl gait and stance; No joint tenderness Extremities: normal pulses Neurological: FACULTY ADMINISTRATOR II-XII intact, nl mental status, nl speech, nl strength Skin: nl turgor, rash or lesions Results Result Diagram: 04/13/1962404/13/19 0625 Results 24hrs Laboratory Tests Test 04/12/19 20:15 04/12/19 23:47 04/13/19 06:25 White Blood Count 6.2 # 5.4 Red Blood Count 3.96 L 3.69 L Hemoglobin 12.2 11.6 L Hematocrit 38.0 35.3 L Mean Corpuscular Volume 96.0 95.7 Mean Corpuscular Hemoglobin 30.8 31.4 Mean Corpuscular Hemoglobin Concent 32.1 32.9 Red Cell Distribution Width 13.3 13.4 Platelet Count 235 214 Mean Platelet Volume 9.8 9.9 Immature Granulocytes % 0.300 0.200 Neutrophils % 59.0 53.8 Lymphocytes % 28.9 32.9 Monocytes % 8.6 9.6 Eosinophils % 1.9 2.4 Basophils % 1.3 1.1 Nucleated Red Blood Cells % 0.0 0.0 Immature Granulocytes # 0.020 0.010 Neutrophils # 3.6 2.9 Lymphocytes # 1.8 1.8 Monocytes # 0.5 0.5 Eosinophils # 0.1 0.1 Basophils # 0.1 0.1 Nucleated Red Blood Cells # 0.0 0.0 Urine Color COLORLESS Urine Clarity CLEAR Urine pH 6.0 Urine Specific [place] 1.004 Urine Ketones NEGATIVE Urine Nitrite NEGATIVE Urine Bilirubin NEGATIVE Urine Urobilinogen NEGATIVE Urine Leukocyte Esterase TRACE A Urine Microscopic RBC 1 Urine Microscopic WBC 3 Urine Hemoglobin NEGATIVE Urine Glucose NEGATIVE Urine Total Protein NEGATIVE Sodium Level 145 H 142 Potassium Level 4.6 4.5 Chloride Level 106 109 Carbon Dioxide Level 29 27 Anion Gap 10 6 Blood Urea Nitrogen 16 12 Creatinine 0.75 0.65 Est Glomerular Filtrat Rate mL/min > 60 > 60 Glucose Level 103 89 Calcium Level 9.9 8.5 Total Bilirubin 0.4 0.5 Direct Bilirubin 0.00 0.00 Indirect Bilirubin 0.4 0.5 Aspartate Amino Transf (AST/SGOT) 31 28 Alanine Aminotransferase (ALT/SGPT) 20 24 Alkaline Phosphatase 61 55 Troponin I < 0.012 < 0.012 < 0.012 Total Protein 7.0 6.2 Albumin 4.1 3.3 Globulin 2.90 2.90 Albumin/Globulin Ratio 1.41 1.13 Lipase 378 H C-Reactive Protein < 0.5 Triglycerides Level 55 Cholesterol Level 144 LDL Cholesterol, Calculated 74 HDL Cholesterol 59 Cholesterol/HDL Ratio 2.4 Imaging Imaging CXR report reviewed EKG reviewed nsr no acute abnl Echo images reviewd Medications Medication Current Medications Morphine Sulfate (morphine) 4 mg Q4 PRN IV SEVERE PAIN; Start 04/12/19 at 22:30 Zolpidem Tartrate (Ambien) 5 mg HS PRN PO INSOMNIA; Start 04/12/19 at 22:30 Acetaminophen (Tylenol Tab) 500 mg Q4 PRN PO MILD PAIN LEVEL 1-3 Last administered on 04/13/19at 10:30; Admin Dose 500 MG; Start 04/12/19 at 22:30 Nitroglycerin (Nitroglycerin (Sl Tab) 0.4 Mg) 1 tab [id number] PRN SL CHEST PAIN; Start 04/12/19 at 23:30 Aspirin (Aspirin) 81 mg DAILY PO Last administered on 04/13/19at 10:30; Admin D ose 81 MG; Start 04/13/19 at 09:00 Levothyroxine Sodium (Synthroid) 125 mcg DAILY@06 PO Last administered on 04/13/19 11:03; Admin Dose 125 MCG; Start 04/13/19 at 11:00 Pantoprazole (Protonix Tab) 40 mg DAILY@06 PO Last administered on 04/13/19 11:03; Admin Dose 40 MG; Start 04/13/19 at 11:00 AMARILYS NICOLAS Apr 13, 2019 13:03
[2019-04-14] MEDS ORDERED: PANTOPRAZOLE (EC) 40 MG TAB PO SCH (06:00)
[2019-04-14] MEDS ORDERED: LEVOTHYROXINE 125 MCG TAB PO SCH (06:00)
--- NOTE | 2019-04-16 17:15 | RADRPT ---
Vent Rate: 68 bpm RR Interval: 880 msec NV Interval: 176 msec QRS Duration: 90 msec QT Interval: 389 msec QTC Interval: 415 msec P-R-T [place]: 82 - 65 - 61 degrees Sinus rhythm...normal P axis, V-rate 50- 99 Electronically Signed By: Aubrey Tucker
== END 2019-04-13 19:06 | disposition home or self-care (01) | DRG 392 ==
LOC: E/R 19:41 → 6WM 20:50
PROVIDERS: ADMIT Internal Medicine; ATTEND Internal Medicine
DX: R10.13 Epigastric pain (principal); R07.9 Chest pain, unspecified; E03.9 Hypothyroidism, unspecified; Z87.11 Personal history of peptic ulcer disease; Z98.84 Bariatric surgery status
CPT/HCPCS: 36415; 71045; 80053; 80061; 81001; 83690; 84484; 85025; 86140; 93005; 93306; 96374; J1650; J1885; J7040